=== PATIENT | female | born 1995 | race Caucasian/White ===

== ENCOUNTER 2019-05-29 12:16 | Outpatient (CLI) | payer OTHER ==
--- NOTE | 2019-05-29 14:19 | RAD ---
HYSTEROSALPINGOGRAM: HISTORY: Infertility. COMPARISON: None. EXPOSURE: 0.4 minutes. 2031.2 mGy*^cm2. FINDINGS: Appropriate retrograde opacification of the endometrium. There is opacification of both fallopian tu bes with free spillage in the left and right hemipelvis. Lower uterine segment is unremarkable. IMPRESSION: Patent left and right fallopian tube. POS: OFF
== END 2019-05-29 12:17 | disposition home or self-care (01) ==
LOC: RAD 12:16 → MERGE 12:16 → RAD 12:17
PROVIDERS: ATTEND Student in an Organized Health Care Education/Training Program
DX: R10.2 Pelvic and perineal pain (principal)
CPT/HCPCS: 58340; 74740

== ENCOUNTER 2020-03-27 13:01 | Inpatient (IN) | payer OTHER ==
[2020-03-31] MEDS ORDERED: Bupivacaine 0.25% HCL 30 ML VIAL ONE (10:13)
[2020-03-31 20:46] VITALS: BMI 44.9
[2020-03-31] MEDS ORDERED: Butorphanol Tartrate 1 MG/ML VIAL SLOW IVP PRN (21:33)
[2020-03-31] MEDS ORDERED: Methylergonovine 0.2 MG/ML VIAL IM PRN (21:33)
[2020-03-31] MEDS ORDERED: Diphenoxylate HCl/Atropine Tablet PO PRN (21:33)
[2020-03-31] MEDS ORDERED: Misoprostol 200 MCG TAB PR PRN (21:33)
[2020-03-31] MEDS ORDERED: Carboprost 250 MCG/ML AMP IM PRN (21:33)
[2020-03-31] MEDS ORDERED: HYDROcodone/Acetaminophen 5/325 mg Tablet PO PRN (21:33)
[2020-03-31] MEDS ORDERED: Ondansetron PF 4 MG/2 ML Vial IVP PRN (21:33)
[2020-03-31] MEDS ORDERED: Ibuprofen 800 MG TAB PO PRN (21:33)
[2020-03-31] MEDS ORDERED: NS / Oxytocin 40 units/1000ml 1,000 ML IV PRN (21:33)
[2020-03-31] MEDS ORDERED: hydrALAZINE 20 MG/ML VIAL SLOW IVP PRN (21:33)
[2020-03-31] MEDS ORDERED: Promethazine HCl 25 MG/ML VIAL IM PRN (21:33)
[2020-03-31] MEDS ORDERED: Acetaminophen 500 MG TAB PO PRN (21:33)
[2020-03-31] MEDS ORDERED: Lidocaine 1% (PF) 30 ML VIAL SC PRN (21:33)
[2020-03-31] MEDS ORDERED: NS w/ Oxytocin 10 units 500 ML IV SCH (21:45)
[2020-03-31 22:02] LABS: Hemoglobin 13.9 g/dL (12.0-16.0); Mean Corpuscular HGB CONC 33.7 g/dL (32.0-36.0); Mean Corpuscular Volume 86.2 fL (78.0-98.0); Platelet Count 234 thou/uL (130-400); RBC Distribution Width 13.2 % (11.5-14.5); White Blood Cell (WBC) Count 8.6 thou/uL (4.8-10.8)
[2020-03-31 22:40] LABS: Syphilis Antibody Nonreactive (Nonreactive); Syphilis Antibody Index 0.03 S/CO (<1.00 Non-Reactive)
[2020-03-31 22:41] LABS: HBSAg Index 0.15 S/CO (0-0.99); Hep B Surf Ag Non-Reactive S/CO (NonReactive)
[2020-03-31] MEDS: Lactated Ringer's 1,000 ML IV SCH ×2 (23:37→23:38)
[2020-03-31] MEDS: Misoprostol 100 MCG TAB VAG SCH (23:38)
[2020-04-01] MEDS: Lactated Ringer's 1,000 ML IV SCH ×2 (00:25→07:28)
[2020-04-01] MEDS: Misoprostol 100 MCG TAB VAG SCH ×3 (04:34→15:01)
[2020-04-01] MEDS ORDERED: Fentanyl 4 mcg/Bup 0.1% Cadd 100 ML ONE (07:36)
[2020-04-01] MEDS ORDERED: Acetaminophen 325 MG TAB PO PRN (08:17)
[2020-04-01] MEDS ORDERED: Promethazine HCl 25 MG/ML VIAL IM PRN ×2 (08:17→15:10)
[2020-04-01] MEDS ORDERED: Lactated Ringer's 500 ML IV PRN (08:17)
[2020-04-01] MEDS ORDERED: Ondansetron PF 4 MG/2 ML Vial IVP PRN ×2 (08:17→15:10)
[2020-04-01] MEDS ORDERED: Naloxone HCl 0.4 mg/ml Vial IVP PRN ×2 (08:17)
[2020-04-01] MEDS ORDERED: EPHEDRINE 25 MG/5 ML SYRINGE SLOW IVP PRN (08:17)
[2020-04-01] MEDS ORDERED: diphenhydrAMINE 50 MG/ML VIAL IVP PRN (08:17)
--- NOTE | 2020-04-01 08:26 | PDOC.LDHP ---
Labor and Delivery H&P Chief complaint: scheduled induction Allergies/Adverse Reactions: Allergies Allergy/AdvReac Type Severity Reaction Status Date / Time amoxicillin [Amoxicillin] Allergy Severe Verified 03/31/20 20:34 Hives paper tape Allergy Rash Uncoded 02/18/20 01:00
[2020-04-01] MEDS ORDERED: Communication Order-Pharmacy FS SCH (08:30)
[2020-04-01] MEDS ORDERED: Fentanyl 4 mcg/Bupivacaine 0.1% Cassette 100 ML EPIDURAL SCH (08:30)
[2020-04-01 11:59] LABS: Base Excess (BEa) -6.2 mEq/L (-2.0 to +3.0)
[2020-04-01 12:01] LABS: Actual Bicarbonate (HCO3v) 20 mEq/L (22-28); Base Excess -7.6 mEq/L (-2.0 to +3.0)
[2020-04-01 12:02] LABS: pH (Cord, venous) 7.24 (7.32-7.43)
--- NOTE | 2020-04-01 12:35 | PDOC.OPDEL ---
OB Operative/Delivery Note Delivery Dr/Surgeon: Maritza Assist: n/a Pre-Delivery Diagnosis: elective induction Procedure/Post Delivery Dx: operative vaginal delivery (VE for NRFHT) Weeks gestation: 40 Anesthesia: epidural - Findings A Sex: female - 1 min: 8 - 5 min: 9 - Additional Findings/Plan Placenta delivered: spontaneous Repaired Obstetrical Laceration: none Estimated blood loss: 100 Post delivery plan: routine recovery
[2020-04-01] MEDS ORDERED: Preparation H Ointment 28 GM TUBE PR PRN (15:10)
[2020-04-01] MEDS ORDERED: diphenhydrAMINE 25 MG CAP PO PRN (15:10)
[2020-04-01] MEDS ORDERED: hydrALAZINE 20 MG/ML VIAL SLOW IVP PRN (15:10)
[2020-04-01] MEDS ORDERED: Bisacodyl 10 MG SUPP PR PRN (15:10)
[2020-04-01] MEDS ORDERED: Adacel (T-DAP) 0.5 ML SYRINGE IM ONE (15:10)
[2020-04-01] MEDS ORDERED: NS / Oxytocin 40 units/1000ml 1,000 ML IV SCH (15:10)
[2020-04-01] MEDS ORDERED: Lanolin Ointment 7 GM TUBE TOP PRN (15:10)
[2020-04-01] MEDS ORDERED: Milk Of Magnesia 30 ML UDCUP PO PRN (15:10)
[2020-04-01] MEDS ORDERED: Benzocaine-Menthol 82.5 ML CAN TOP PRN (15:10)
[2020-04-01] MEDS ORDERED: HYDROcodone/Acetaminophen 5/325 mg Tablet PO PRN ×2 (15:10)
[2020-04-01] MEDS: Ibuprofen 800 MG TAB PO SCH ×2 (15:29→23:01)
[2020-04-01] MEDS: Ferrous Sulfate 325 MG TAB PO SCH (15:50)
[2020-04-01] MEDS: Docusate Calcium (SURFAK) 240 MG CAP PO SCH (23:01)
[2020-04-02] MEDS: Ibuprofen 800 MG TAB PO SCH ×2 (06:04→14:04)
[2020-04-02 06:09] VITALS: TEMP 97.9
[2020-04-02] MEDS: Ferrous Sulfate 325 MG TAB PO SCH ×2 (07:43→14:11)
[2020-04-02 07:47] VITALS: BP 122/71
[2020-04-02] MEDS ORDERED: Prenatal Vitamin 1 TAB PO SCH (09:00)
[2020-04-02] MEDS: Docusate Calcium (SURFAK) 240 MG CAP PO SCH (09:11)
--- NOTE | 2020-04-02 16:09 | PDOC.PP ---
Post Progress Note Post Day #: 1 PO intake tolerated: yes Flatus: yes Ambulation: yes Vital Signs (12 hours) Temp Pulse Resp BP Pulse Ox 04/02/20 07:46 97.9 F 79 20 122/71 99 04/02/20 05:58 97.9 F 80 14 124/72 98 Weight Weight 238 lb - Physical Examination General: NAD Respiratory: non-labored breathing Abdominal: no distention, appropriately TTP Fundus firm & at: umb Skin: no rash Psychiatric: normal affect Result Diagrams: 03/31/20 21:51 Additional Labs: Post Labs Blood Type B POSITIVE 03/31/20 23:11 Hep Bs Antigen Non-Reactive S/CO (NonReactive) 03/31/20 21:51 - Assessment/Plan PPD1 s/p VAVD VSSAF Doing well lochia < menses, pain controlled Rh pos RImm DC home FU 6w
== END 2020-04-02 17:55 | disposition home or self-care (01) | DRG 807 ==
LOC: EDSTATUS 14:10 → L&D 03-31 20:00 → 3SW 04-01 15:05
PROVIDERS: ADMIT Student in an Organized Health Care Education/Training Program; ATTEND Student in an Organized Health Care Education/Training Program
PROC: 3E033VJ Introduction of Other Hormone into Peripheral Vein, Percutaneous Approach (ICD-10-PCS; 2020-03-31)
PROC: 10907ZC Drainage of Amniotic Fluid, Therapeutic from Products of Conception, Via Natural or Artificial Opening (ICD-10-PCS; 2020-03-31)
PROC: 10D07Z6 Extraction of Products of Conception, Vacuum, Via Natural or Artificial Opening (ICD-10-PCS; principal; 2020-04-01)
DX: O48.0 Post-term pregnancy (principal); Z37.0 Single live birth; O76 Abnormality in fetal heart rate and rhythm complicating labor and delivery; Z3A.40 40 weeks gestation of pregnancy; O77.0 Labor and delivery complicated by meconium in amniotic fluid
CPT/HCPCS: 36415; 82805; 85027; 86780; 86850; 86900; 86901; 87340; 88307; J0595; J2590; S0020